=== PATIENT | female | born 2000 | race Caucasian/White ===

== ENCOUNTER 2019-10-11 17:50 | Emergency (ER) | payer MEDICAID ==
[2019-10-11] MEDS ORDERED: Sodium Chloride 0.9% 1000 ML 1,000 ML IV SCH (18:00)
--- NOTE | 2019-10-11 18:37 | ERPHSYRPT ---
- History of Present Illness Time Seen by Provider: 10/11/19 18:00 Source: patient Exam Limitations: no limitations Patient Subjective Stated Complaint: Pt states that she has been having a menstrual period for the past 3-4 months and is now passing large clots Triage Nursing Assessment: Pt was dropped off at the ER, hypertensive, tachycardic, denies pain, skin n/w/d, pulses normal, denies pain in abdomen and with palpatation, denies any problems with urination or bowel movements Physician History: Patient is a 19-year-old female presents to our ED with complaints of vaginal bleeding. Patient has been experiencing vaginal bleeding for the past 3 to 4 months. Patient wears a tampon and states that she has been changing her tampon every few hours. Patient has been otherwise symptomatic until today. Today pat ient noted large clots. No associated dizziness. No chest pain or shortness of breath. No nausea vomiting or diaphoresis. Patient states she has very little discomfort at her pelvis. She voices that her mom had similar symptoms. However does not know what her mom was diagnosed with at the time. Patient voices no other complaints at this time. Activites at Onset: none Quality: other Onset Location: unknown Pain Radiation: none Severity of Pain-Max: moderate Severity of Pain-Current: mild Sexual intercourse history: non-contributory Modifying Factors: Improves With: nothing Associated Symptoms: other (Intermittent cramping.) Allergies/Adverse Reactions: No Known Drug Allergies Allergy (Verified 10/11/19 18:10) Home Medications: No Reportable Medications [No Reported Medications] 10/11/19 [History] Travel Risk - International Travel Have you traveled outside of the country in past 3 weeks: No - Coronavirus Screening Are you exhibiting any of the following symptoms?: No Close contact with a COVID-19 positive Pt in past 14-21 Days: No - Review of Systems Constitutional: No Symptoms, No Fever, No Chills Eyes: No Symptoms Ears, Nose, & Throat: No Symptoms Respiratory: No Symptoms, No Cough, No Dyspnea Cardiac: No Symptoms, No Chest Pain, No Edema, No Syncope Abdominal/Gastrointestinal: No Symptoms, No Abdominal Pain, No Nausea, No Vomiting, No Diarrhea Genitourinary Symptoms: No Symptoms, No Dysuria Musculoskeletal: No Symptoms, No Back Pain, No Neck Pain Skin: No Symptoms, No Rash Neurological: No Symptoms, No Dizziness, No Focal Weakness, No Sensory Changes Psychological: No Symptoms Endocrine: No Symptoms Hematologic/Lymphatic: No Symptoms Immunological/Allergic: No Symptoms All Other Systems: Reviewed and Negative - Past Medical History Pertinent Past Medical History: Yes Female Reproductive Disorders: Menstrual Problems - Past Surgical History Past Surgical History: No - Social History Smoking Status: Never smoker Exposure to second hand smoke: Yes Drug Use: none Patient Lives Alone: No - Female History Hx Now: No - Nursing Vital Signs Nursing Vital Signs: Initial Vital Signs Temperature 98.5 F 10/11/19 18:00 Pulse Rate 119 H 10/11/19 18:00 Blood Pressure 142/79 10/11/19 18:00 O2 Sat by Pulse Oximetry 98 10/11/19 18:00 Pain Scale Pain Intensity 0 - Physical Exam General Appearance: no apparent distress, alert Eye Exam: PERRL/EOMI, eyes nml inspection Ears, Nose, Throat Exam: normal ENT inspection, TMs normal, pharynx normal, moist mucous membranes Neck Exam: normal inspection, non-tender, supple, full range of motion Respiratory Exam: normal breath sounds, lungs clear, No respiratory distress Cardiovascular Exam: regular rate/rhythm, normal heart sounds, normal peripheral pulses Gastrointestinal/Abdomen Exam: soft, No tenderness, No mass Pelvic Exam: other (There was a foreign body observed in the vagina measuring approximately 3 cm x 2 cm x 1 cm. Upon closer inspection it appears to be paper. Patient does not know where of the foreign body came from.), No adnexal tenderness, No adnexal mass, No cervical motion tenderness, No vaginal bleeding, No uterine tenderness Back Exam: normal inspection, normal range of motion, No CVA tenderness, No vertebral tenderness Extremity Exam: normal inspection, normal range of motion, pelvis stable Neurologic Exam: alert, oriented x 3, cooperative, guest relations agent II-XII nml as tested, normal mood/affect, sensation nml, No motor deficits Skin Exam: normal color, warm, dry Lymphatic Exam: No adenopathy SpO2 Interpretation: normal SpO2: 98 O2 Delivery: Room Air - Course Nursing assessment & vital signs reviewed: Yes - Radiology Ultrasound Exam OB Ultrasound: discussed w/radiologist (Per generation technologist no torsion. Normal ultrasound of pelvis) Ordered Tests: Active Orders 24 hr Category Date Time Status IV Insertion STAT Care 10/11/19 18:00 Active PELVIS TRANS VAGINAL [US] Stat Exams 10/11/19 18:00 Taken CBC W DIFF Stat Lab 10/11/19 18:25 Completed CMP Stat Lab 10/11/19 18:25 Completed HCG,QUALITATIVE URINE Stat Lab 10/11/19 18:43 Completed UA W/RFX UR CULTURE Stat Lab 10/11/19 18:43 Completed Wet Prep Stat Lab 10/11/19 Uncollected Medication Summary Generic Name Dose Route Start Last Admin Trade Name Freq PRN Reason Stop Dose Admin Sodium Chloride 1,000 mls @ 100 mls/hr 10/11/19 18:00 10/11/19 18:59 Sodium Chloride 0.9% 1000 Ml IV 11/10/19 17:59 100 mls/hr .Q10H ABIMBOLA Administration Lab/Rad Data: Laboratory Result Diagrams 10/11/19 18:25 10/11/19 18:25 Laboratory Results 10/11/19 10/11/19 10/11/19 Range/Units 18:43 18:43 18:25 WBC (4.0-10.5) K/mm3 RBC (4.1-5.4) M/mm3 Hgb (12.0-16.0) gm/dl Hct (35-47) % MCV (78-100) fl MCH (26-32) pg MCHC (32-36) g/dl RDW (11.5-14.0) % Plt Count (150-450) K/mm3 MPV (7.5-11.0) fl Gran % (36.0-66.0) % Eos # (Auto) (0-0.5) Absolute Lymphs (auto) (1.0-4.6) Absolute Monos (auto) (0.0-1.3) Lymphocytes % (24.0-44.0) % Monocytes % (0.0-12.0) % Eosinophils % (0.00-5.0) % Basophils % (0.0-0.4) % Absolute Granulocytes (1.4-6.9) Basophils # (0-0.4) Sodium 140 (137-145) mmol/L Potassium 3.9 (3.5-5.1) mmol/L Chloride 106 (98-107) mmol/L Carbon Dioxide 26 (22-30) mmol/L Anion Gap 12.8 (5-15) MEQ/L BUN 13 (7-17) mg/dL Creatinine 0.68 (0.52-1.04) mg/dL Estimated GFR > 60.0 ML/MIN Glucose 86 (74-106) mg/dL Calcium 9.7 (8.4-10.2) mg/dL Total Bilirubin 0.40 (0.2-1.3) mg/dL AST 25 (14-36) U/L ALT 26 (0-35) U/L Alkaline Phosphatase 119 (38-126) U/L Serum Total Protein 8.2 (6.3-8.2) g/dL Albumin 4.6 (3.5-5.0) g/dL Urine Color YELLOW (YELLOW) Urine Appearance CLEAR (CLEAR) Urine pH 5.0 (5-6) Ur Specific [place] 1.021 (1.005-1.025) Urine Protein NEGATIVE (Negative) Urine Ketones NEGATIVE (NEGATIVE) Urine Blood NEGATIVE (0-5) Phillip/ul Urine Nitrite NEGATIVE (NEGATIVE) Urine Bilirubin NEGATIVE (NEGATIVE) Urine Urobilinogen NEGATIVE (0-1) mg/dL Ur Leukocyte Esterase NEGATIVE (NEGATIVE) Urine WBC (Auto) NONE SEEN (0-5) /HPF Urine RBC (Auto) NONE SEEN (0-2) /HPF U Epithel Cells (Auto) NONE (FEW) /HPF Urine Bacteria (Auto) NONE SEEN (NEGATIVE) /HPF Urine Mucus (Auto) SLIGHT (NEGATIVE) /HPF Urine Culture Reflexed NO (NO) Urine Glucose NEGATIVE (NEGATIVE) mg/dL Urine HCG, Qual NEGATIVE (Negative) 10/11/19 Range/Units 18:25 WBC 9.6 (4.0-10.5) K/mm3 RBC 4.91 (4.1-5.4) M/mm3 Hgb 13.4 (12.0-16.0) gm/dl Hct 41.5 (35-47) % MCV 84.5 (78-100) fl MCH 27.3 (26-32) pg MCHC 32.3 (32-36) g/dl RDW 13.4 (11.5-14.0) % Plt Count 337 (150-450) K/mm3 MPV 9.5 (7.5-11.0) fl Gran % 65.5 (36.0-66.0) % Eos # (Auto) 0.06 (0-0.5) Absolute Lymphs (auto) 2.46 (1.0-4.6) Absolute Monos (auto) 0.77 (0.0-1.3) Lymphocytes % 25.7 (24.0-44.0) % Monocytes % 8.0 (0.0-12.0) % Eosinophils % 0.6 (0.00-5.0) % Basophils % 0.2 (0.0-0.4) % Absolute Granulocytes 6.26 (1.4-6.9) Basophils # 0.02 (0-0.4) Sodium (137-145) mmol/L Potassium (3.5-5.1) mmol/L Chloride (98-107) mmol/L Carbon Dioxide (22-30) mmol/L Anion Gap (5-15) MEQ/L BUN (7-17) mg/dL Creatinine (0.52-1.04) mg/dL Estimated GFR ML/MIN Glucose (74-106) mg/dL Calcium (8.4-10.2) mg/dL Total Bilirubin (0.2-1.3) mg/dL AST (14-36) U/L ALT (0-35) U/L Alkaline Phosphatase (38-126) U/L Serum Total Protein (6.3-8.2) g/dL Albumin (3.5-5.0) g/dL Urine Color (YELLOW) Urine Appearance (CLEAR) Urine pH (5-6) Ur Specific [place] (1.005-1.025) Urine Protein (Negative) Urine Ketones (NEGATIVE) Urine Blood (0-5) Phillip/ul Urine Nitrite (NEGATIVE) Urine Bilirubin (NEGATIVE) Urine Urobilinogen (0-1) mg/dL Ur Leukocyte Esterase (NEGATIVE) Urine WBC (Auto) (0-5) /HPF Urine RBC (Auto) (0-2) /HPF U Epithel Cells (Auto) (FEW) /HPF Urine Bacteria (Auto) (NEGATIVE) /HPF Urine Mucus (Auto) (NEGATIVE) /HPF Urine Culture Reflexed (NO) Urine Glucose (NEGATIVE) mg/dL Urine HCG, Qual (Negative) - Progress Progress: improved Air Movement: good Progress Note: 10/11/19 20:19 Patient reassessed. She feels well. GC chlamydia pending. Patient does not want to wait for the wet mount to result. We will discharge patient home and call patient with any abnormal results. Work-up otherwise nonremarkable. Plan of care discussed with patient. Patient agrees to follow-up with her primary care doctor within 48 hours for reevaluation. Blood Culture(s) Obtained: No Antibiotics given: No Counseled pt/family regarding: lab results, diagnosis, need for follow-up, rad results - Departure Departure Disposition: Home Clinical Impression: Vaginal bleeding Condition: Stable Critical Care Time: No Referrals: DOCTOR,NO FAMILY [Primary Care Provider] - MONA SMALLS [ACTIVE STAFF] - Additional Instructions: Discharge/Care Plan SHERLY MEYER was seen on 10/11/19 in the Emergency Room. The patient was counseled regarding Diagnosis,Lab results, Imaging studies, need for follow up and when to return to the Emergency Room. Prescriptions given: Discharge Note I have spoken with the patient and/or caregivers. I have explained the patient's condition, diagnosis and treatment plan based on the information available to me at this time. I have answered the patient's and/or caregiver's questions and addressed any concerns. The patient and/or caregivers have as good understanding of the patient's diagnosis, condition and treatment plan as can be expected at this point. The vital signs have been stable. The patient's condition is stable and appropriate for discharge from the emergency department. The patient will pursue further outpatient evaluation with the primary care physician or other designated or consulting physician as outlined in the discharge instructions. The patient and/or caregivers are agreeable to this plan of care and follow-up instructions have been explained in detail. The patient and/or caregivers have received these instruction. The patient/and or caregivers are aware that any significant change in condition or worsening of symptoms should prompt an immediate return to this or the closest emergency department or call 911.
[2019-10-11 18:38] LABS: Absolute Neutrophil Ct (ANC) 6.26 (1.4-6.9); BASOPHIL % 0.2 % (0.0-0.4); Basophil (Absolute #) 0.02 (0-0.4); Eosinophil % 0.6 % (0.00-5.0); Eosinophil (Absolute #) 0.06 (0-0.5); Hematocrit 41.5 % (35-47); Hemoglobin 13.4 gm/dl (12.0-16.0); Lymphocyte (Absolute #) 2.46 (1.0-4.6); Lymphocytes % 25.7 % (24.0-44.0); Mean Cell Volume 84.5 fl (78-100); Mean Corpuscular Hemoglobin 27.3 pg (26-32); Mean Corpuscular Hgb Concent. 32.3 g/dl (32-36); Mean Platelet Volume 9.5 fl (7.5-11.0); Monocyte (Absolute #) 0.77 (0.0-1.3); Neutrophil % 65.5 % (36.0-66.0); Platelet Count 337 K/mm3 (150-450); Red Blood Count 4.91 M/mm3 (4.1-5.4); Red Cell Distribution Width 13.4 % (11.5-14.0); White Blood Count 9.6 K/mm3 (4.0-10.5)
[2019-10-11 18:49] LABS: ALBUMIN 4.6 g/dL (3.5-5.0); ALKALINE PHOSPHATASE 119 U/L (38-126); ANION GAP 12.8 MEQ/L (5-15); BLOOD UREA NITROGEN 13 mg/dL (7-17); CHLORIDE 106 mmol/L (98-107); Calcium 9.7 mg/dL (8.4-10.2); Carbon Dioxide 26 mmol/L (22-30); Creatinine 1 0.68 mg/dL (0.52-1.04); Glucose 86 mg/dL (74-106); Potassium 3.9 mmol/L (3.5-5.1); SGOT/AST 25 U/L (14-36); SGPT/ALT 26 U/L (0-35); SODIUM 140 mmol/L (137-145); Total Protein 8.2 g/dL (6.3-8.2)
[2019-10-11 18:50] LABS: Appearance CLEAR (CLEAR); Bilirubin NEGATIVE (NEGATIVE); Blood NEGATIVE Ery/ul (0-5); Glucose NEGATIVE (NEGATIVE); Ketones NEGATIVE (NEGATIVE); Leukocyte Esterase NEGATIVE (NEGATIVE); Mucus SLIGHT /HPF (NEGATIVE); Nitrite NEGATIVE (NEGATIVE); Protein,Urine Dip NEGATIVE (Negative); Specific Gravity 1.021 (1.005-1.025); Urobilinogen NEGATIVE mg/dL (0-1)
[2019-10-11] MEDS ORDERED: Sodium Chloride 0.9% 1000 ML 1,000 ML ONE (18:58)
[2019-10-11 19:06] LABS: Bacteria NONE SEEN /HPF (NEGATIVE); RBC NONE SEEN /HPF (0-2); WBC NONE SEEN /HPF (0-5)
[2019-10-11 20:20] VITALS: O2SAT 98
[2019-10-11 20:36] VITALS: BP 132/85; PULSE 74
[2019-10-11 20:44] LABS: CHLAMYDIA DNA NOT DETECTED (NEGATIVE); GC DNA Probe NOT DETECTED (NEGATIVE)
[2019-10-11 22:07] LABS: Bacteria Rare; Clue Cells None Seen; Red Blood Cells Moderate; Trichomonas None Seen; White Blood Cells Few; Yeast None Seen
--- NOTE | 2019-10-12 08:56 | XRAY ---
Indication: Heavy menstrual bleeding 3 months. Two-dimensional transvaginal pelvic sonogram performed. Comparison: None Uterus is retroverted measuring 7.0 x 3.1 x 3.9 cm. A few lower uterine segment nabothian cysts, largest 6 mm. No focal solid uterine mass. Endometrial stripe is thickened measuring 10.6 mm. No endometrial cavity mass or fluid collection. Right ovary measures 3.9 x 2.4 x 2.9 cm and the left measures 3.6 x 2.6 x 3.3 cm with normal perfusion bilaterally. Both ovaries also demonstrates multiple tiny peripheral follicular cysts as seen with polycystic ovary syndrome. No suspicious solid adnexal mass or free fluid. Impression: 1. Multiple tiny peripheral ovary cyst. Rule out polycystic ovary syndrome. 2. Nabothian cysts. 3. Thickened endometrial stripe that should be correlated with patient's menstrual cycle. Comment: Preliminary report was given.
== END 2019-10-11 20:36 | disposition home or self-care (01) ==
LOC: ED 17:50
DX: N93.9 Abnormal uterine and vaginal bleeding, unspecified (principal)
CPT/HCPCS: 36000; 36415; 76830; 80053; 81001; 84703; 85025; 87210; 87491; 87591; 96360; 99284

== ENCOUNTER → 2022-05-26 | Day surgery (SDC) | payer BC, OTHER ==
[~2022-05-26] MED LIST: ASTRINGYN 8 GM TP ONE; CEFAZOLIN 2 GM-D5W BAG** 2 GM/50 ML ML IV SCH; DIPRIVAN 200 MG/20 ML IV ONE; Decadron 4 MG INJ ONE; Lactated Ringers 1,000 ML IV SCH; Pepcid 20 MG VIAL IV ONE; Pepcid 20 MG VIAL IV SCH; Quelicin Fliptop 200 MG/10 ML ONE; Reglan 10 MG/2 ML IV ONE; Reglan 10 MG/2 ML ONE; SUBLIMAZE 100 MCG/2 ML ONE; TORAdol 30 mg Injection ONE; Versed 2 MG/2 ML Injection ONE; XYLOCAINE 1%/Epi 1:100000 MDV 20 ML ONE; Zofran 4 MG/2 ML VIAL ONE
[2022-05-26 10:08] VITALS: BP 158/91; PULSE 104; O2SAT 94
--- NOTE | 2022-05-27 08:45 | OP ---
SURGERY DATE/TIME: 05/26/2022 0830 PREOPERATIVE DIAGNOSIS: Severe cervical dysplasia. POSTOPERATIVE DIAGNOSIS: Severe cervical dysplasia. PROCEDURE: Loop electrosurgical excision procedure (LEEP). SURGEON: Sidney Garcia D.O. FANCY NEEDLEWORKER: Yadira Fierro, surgical corsetier. ANESTHESIA: General. ESTIMATED BLOOD LOSS: Minimal. COMPLICATIONS: None. INDICATIONS: The risks, benefits, indications and alternatives of the procedure were reviewed with the patient prior to procedure. The patient understood the risk of infection, bleeding, bowel injury, bladder injury, cervical incompetence associated with this surgery however desires to have this surgery as a possible means to alleviate her current medical condition. DESCRIPTION OF PROCEDURE AND FINDINGS: At this point the patient is taken to the operating room, given general sedation, placed in the dorsal lithotomy position, prepped and draped in the usual sterile fashion. A coated speculum is then placed into the patient's vagina and the cervix was then injected circumferentially with 1% lidocaine with epinephrine and approximately 6 cc were used. From this point the loop instrument was then used to excise the ectocervical portion with a right to left motion and approximately 7 to 8 mm of ectocervical tissue was excised and was done so without complication in a right to left motion. An additional 2 to 3 mm of endocervical tissue was excised in similar fashion with a right to left motion. Again, hemostasis was assured. The loop gambling monitor ball was placed on the surface of the cervix for further hemostasis and was done so without complication. From this point all instruments were removed from the patient's vaginal region. The patient was then taken out of the dorsal lithotomy position, was then taken to the recovery room in stable condition. All instruments and laps were accounted for x2.
== END ==
LOC: SDC 06:27
PROVIDERS: ATTEND Obstetrics & Gynecology
DX: D06.9 Carcinoma in situ of cervix, unspecified (principal)
CPT/HCPCS: 81025; 96374; 96375; J0330; J0690; J1100; J1885; J2250; J2405; J2704; J3010; A9270-GY